=== PATIENT | female | born 1950 ===

== ENCOUNTER → 2018-03-17 | Outpatient (CLI) | payer MEDICARE, BC | END | disposition home or self-care (01) | LOC: HKI 13:14 | DX: M25.561 Pain in right knee (principal); M17.11 Unilateral primary osteoarthritis, right knee | CPT/HCPCS: 20610; 73502 ==

== ENCOUNTER → 2018-03-24 | Outpatient (CLI) | payer MEDICARE, BC | END | disposition home or self-care (01) | LOC: HKI 13:14 | DX: M13.811 Other specified arthritis, right shoulder (principal) | CPT/HCPCS: 20610 ==

== ENCOUNTER → 2018-04-05 | Outpatient (CLI) | payer MEDICARE, BC | END | disposition home or self-care (01) | LOC: HKI 13:22 | DX: M17.11 Unilateral primary osteoarthritis, right knee (principal) | CPT/HCPCS: 20610 ==